=== PATIENT | female | born 2000 | race Caucasian/White ===

== ENCOUNTER 2019-04-29 13:42 | Emergency (ER) | payer OTHER ==
[2019-04-29] MEDS ORDERED: Sodium Chloride 0.9% 1000 ML 1,000 ML IV STA (14:13)
[2019-04-29] MEDS ORDERED: Zofran 4 MG/2 ML VIAL IV ONE (14:13)
[2019-04-29] MEDS ORDERED: MORPHINE SULFATE 4 MG INJ IV ONE (14:13)
[2019-04-29] MEDS ORDERED: MORPHINE SULFATE 4 MG INJ ONE (14:17)
[2019-04-29] MEDS ORDERED: Sodium Chloride 0.9% 1000 ML 1,000 ML ONE (14:17)
[2019-04-29] MEDS ORDERED: Zofran 4 MG/2 ML VIAL ONE (14:17)
--- NOTE | 2019-04-29 14:17 | ERPHSYRPT ---
- History of Present Illness Time Seen by Provider: 04/29/19 14:00 Historian: patient Patient Subjective Stated Complaint: Pt stated that she woke up on Wednesday morning in severe pain to the RLQ and later began vomiting, it continued on into and went to [facility] where a CT was done and it showed an inflamed appendix but they stated that it wasn't severe enough for surgery and to leave and return if the pain got worse, pt has been vomiting since and the pain is rated 9/10 at this time Triage Nursing Assessment: Pt brought into the ER by her friends, pt rates pain as 9/10 in RLQ, pain is to severe to palpate as she said that it does hurt when touched, denies trouble with urination, pt's last bowel movement was on , pt has decreased appetite and hasn't eaten much since Wednesday, last food intake was last night at 1900, pt has not had any fluids today, vitals wnl Physician History: 19 years old female presented in the ER with chief complaint of 4-day history of right lower quadrant pain sudden onset associated with multiple episodes of nonprojectile, nonbilious vomiting with no hematemesis. Patient described this as a dull aching to sharp moderate intensity pain all the time and at times it gets stabbing with no radiation, aggravated with palpation and movements. She was seen at [facility] with CT showing enteritis and terminal ileum area, was reviewed by Dr. Ramírez, who did not think patient has acute appendicitis. Patient continues to have pain and is worse since morning. Denies any urinary symptoms. No diarrhea. Denies any fever or chills. She has been taking amoxicillin for otitis media. Timing/Duration: day(s) (4), gradual onset, worse Activities at Onset: rest Quality: cramping, sharpness Abdominal Pain Onset Location: RLQ Pain Radiation: no radiation Severity of Pain-Max: moderate Severity of Pain-Current: moderate Modifying Factors: Improves With: movement, palpation Associated Symptoms: nausea, vomiting Previous symptoms: no prior history Allergies/Adverse Reactions: melon Allergy (Verified 04/29/19 14:04) nut - unspecified Allergy (Verified 04/29/19 14:04) - Review of Systems Constitutional: No Symptoms Eyes: No Symptoms Ears, Nose, & Throat: No Symptoms Respiratory: No Symptoms Cardiac: No Symptoms Abdominal/Gastrointestinal: Abdominal Pain, Nausea, Vomiting Genitourinary Symptoms: No Symptoms Musculoskeletal: No Symptoms Skin: No Symptoms Neurological: No Symptoms Psychological: No Symptoms Endocrine: No Symptoms Hematologic/Lymphatic: No Symptoms Immunological/Allergic: No Symptoms - Past Medical History Pertinent Past Medical History: Yes Other Medical History: fibermyalgia - Past Surgical History Past Surgical History: No - Social History Smoking Status: Never smoker Exposure to second hand smoke: No Drug Use: none Patient Lives Alone: No - Female History Hx Last Menstrual Period: 04/28/2019 Hx Now: No - Nursing Vital Signs Nursing Vital Signs: Initial Vital Signs Temperature 98.4 F 04/29/19 13:49 Pulse Rate 84 04/29/19 13:49 Blood Pressure 116/66 04/29/19 13:49 O2 Sat by Pulse Oximetry 96 04/29/19 13:49 Pain Scale Pain Intensity 8 - Physical Exam General Appearance: no apparent distress Eye Exam: eyes nml inspection Ears, Nose, Throat Exam: normal ENT inspection Neck Exam: normal inspection, non-tender, supple, full range of motion Respiratory Exam: normal breath sounds, lungs clear Cardiovascular Exam: regular rate/rhythm, normal heart sounds Gastrointestinal/Abdomen Exam: soft, tenderness, guarding, No distention Back Exam: normal inspection Extremity Exam: normal inspection, normal range of motion Neurologic Exam: alert, oriented x 3, cooperative Skin Exam: normal color SpO2 Interpretation: normal SpO2: 96 O2 Delivery: Room Air Ordered Tests: Active Orders 24 hr Category Date Time Status IV Insertion STAT Care 04/29/19 14:13 Active ABDOMEN AND PELVIS W/0 CONTRAS [CT] Stat Exams 04/29/19 14:25 Taken CBC W DIFF Stat Lab 04/29/19 14:21 Completed CMP Stat Lab 04/29/19 14:21 Completed LIPASE Stat Lab 04/29/19 14:21 Completed Manual Differential NC Stat Lab 04/29/19 14:21 Completed Medication Summary Discontinued Medications Generic Name Dose Route Start Last Admin Trade Name Freq PRN Reason Stop Dose Admin Diphenhydramine HCl Confirm 04/29/19 14:39 Benadryl 50 Mg/Ml Administered 04/29/19 14:40 Dose 50 mg .ROUTE .STK-MED ONE Sodium Chloride 1,000 mls @ 999 mls/hr 04/29/19 14:13 04/29/19 16:27 Sodium Chloride 0.9% 1000 Ml IV 04/29/19 15:13 Infused .Q1H1M STA Infusion Sodium Chloride Confirm 04/29/19 14:17 Sodium Chloride 0.9% 1000 Ml Administered 04/29/19 14:18 Dose 1,000 mls @ ud .ROUTE .STK-MED ONE Ketorolac Tromethamine Confirm 04/29/19 16:06 Toradol 30 Mg Injection Administered 04/29/19 16:07 Dose 30 mg .ROUTE .STK-MED ONE Ketorolac Tromethamine 30 mg 04/29/19 16:16 04/29/19 16:17 Toradol 30 Mg Injection IV 04/29/19 16:17 30 mg STAT ONE Administration Morphine Sulfate 4 mg 04/29/19 14:13 04/29/19 14:18 Morphine Sulfate 4 Mg Inj IV 04/29/19 14:14 4 mg STAT ONE Administration Morphine Sulfate Confirm 04/29/19 14:17 Morphine Sulfate 4 Mg Inj Administered 04/29/19 14:18 Dose 4 mg .ROUTE .STK-MED ONE Ondansetron HCl 4 mg 04/29/19 14:13 04/29/19 14:18 Zofran 4 Mg/2 Ml Vial IV 04/29/19 14:14 4 mg STAT ONE Administration Ondansetron HCl Confirm 04/29/19 14:17 Zofran 4 Mg/2 Ml Vial Administered 04/29/19 14:18 Dose 4 mg .ROUTE .STK-MED ONE Lab/Rad Data: Laboratory Result Diagrams 04/29/19 14:21 04/29/19 14:21 Laboratory Results 04/29/19 04/29/19 Range/Units 14:21 14:21 WBC 6.9 (4.0-10.5) K/mm3 RBC 4.69 (4.1-5.4) M/mm3 Hgb 13.3 (12.0-16.0) gm/dl Hct 40.5 (35-47) % MCV 86.4 (78-100) fl MCH 28.4 (26-32) pg MCHC 32.8 (32-36) g/dl RDW 13.0 (11.5-14.0) % Plt Count 249 (150-450) K/mm3 MPV 11.0 (7.5-11.0) fl Segmented Neutrophils 59 (36.0-66.0) % Lymphocytes (Manual) 32 (24-44) % Monocytes (Manual) 8 (0.0-12.0) % Eosinophils (Manual) 1 (0.00-3.0) % Platelet Estimate NORMAL (NORMAL) RBC Morphology NORMAL Sodium 140 (137-145) mmol/L Potassium 4.0 (3.5-5.1) mmol/L Chloride 108 H (98-107) mmol/L Carbon Dioxide 24 (22-30) mmol/L Anion Gap 12.5 (5-15) MEQ/L BUN 13 (7-17) mg/dL Creatinine 0.61 (0.52-1.04) mg/dL Estimated GFR > 60.0 ML/MIN Glucose 88 (74-106) mg/dL Calcium 9.6 (8.4-10.2) mg/dL Total Bilirubin 0.70 (0.2-1.3) mg/dL AST 25 (14-36) U/L ALT 13 (0-35) U/L Alkaline Phosphatase 94 (38-126) U/L Serum Total Protein 8.7 H (6.3-8.2) g/dL Albumin 4.7 (3.5-5.0) g/dL Lipase 69 (23-300) U/L - Progress Progress: improved, re-examined Progress Note: 04/29/19 16:46 19 years old is evaluated for right lower quadrant pain. Her previous CT showed enteritis. She did have tenderness and guarding and I have repeated CT with out contrast and it showed normal appendix. She does have positive chlamydia and her prescription is at the pharmacy. She does not have any vaginal discharge. She has a normal white count. I believe patient still have some element of infectious enteritis and I will treat her with Cipro and Flagyl. She is advised to take ibuprofen and Zofran as needed which she has at home. Do not think she needs any further work-up or evaluation and is stable for discharge with outpatient follow-up Counseled pt/family regarding: lab results, diagnosis, need for follow-up, rad results - Departure Departure Disposition: Home Clinical Impression: Enteritis, RLQ abdominal pain, Chlamydia Condition: Stable Critical Care Time: No Referrals: BECCA MCLAIN, [ACTIVE STAFF] - Follow Up with PCP/3 days Instructions: Acute Abdomen (Belly Pain), Adult (DC) Additional Instructions: Continue fluids. Take Tylenol/ibuprofen as needed for pain. Follow-up with primary care for reevaluation. Continue with antibiotics. Get prescription of azithromycin filled for your chlamydia infection. Return to ER for any worsening. Safe sex practices. Prescriptions: Ciprofloxacin [Cipro 500 MG] 500 mg PO BID #14 tablet Metronidazole 500 mg [Flagyl 500 MG] 500 mg PO TID #21 tablet
[2019-04-29 14:22] LABS: Hematocrit 40.5 % (35-47); Hemoglobin 13.3 gm/dl (12.0-16.0); Mean Cell Volume 86.4 fl (78-100); Mean Corpuscular Hemoglobin 28.4 pg (26-32); Mean Corpuscular Hgb Concent. 32.8 g/dl (32-36); Platelet Count 249 K/mm3 (150-450); Red Blood Count 4.69 M/mm3 (4.1-5.4); White Blood Count 6.9 K/mm3 (4.0-10.5)
[2019-04-29 14:32] LABS: ALBUMIN 4.7 g/dL (3.5-5.0); ALKALINE PHOSPHATASE 94 U/L (38-126); ANION GAP 12.5 MEQ/L (5-15); BLOOD UREA NITROGEN 13 mg/dL (7-17); CHLORIDE 108 mmol/L (98-107); Calcium 9.6 mg/dL (8.4-10.2); Carbon Dioxide 24 mmol/L (22-30); Creatinine 1 0.61 mg/dL (0.52-1.04); Glucose 88 mg/dL (74-106); LIPASE 69 U/L (23-300); SGOT/AST 25 U/L (14-36); SGPT/ALT 13 U/L (0-35); SODIUM 140 mmol/L (137-145); Total Protein 8.7 g/dL (6.3-8.2)
[2019-04-29] MEDS ORDERED: BENADRYL 50 MG/ML ONE (14:39)
[2019-04-29 15:06] LABS: Eosinophil 1 % (0.00-3.0); Lymphocytes 32 % (24-44); Monocyte 8 % (0.0-12.0); Neutrophils 59 % (36.0-66.0); Total Cells Counted 100
[2019-04-29 15:07] LABS: Platelet Estimate NORMAL (NORMAL)
[2019-04-29] MEDS ORDERED: TORAdol 30 mg Injection ONE (16:06)
[2019-04-29 16:14] VITALS: PULSE 75
[2019-04-29] MEDS ORDERED: TORAdol 30 mg Injection IV ONE (16:16)
[2019-04-29 17:04] VITALS: BP 116/60; O2SAT 97
--- NOTE | 2019-04-29 19:24 | XRAY ---
Indication: Abdominal pain, vomiting, and constipation. Multiple contiguous axial images obtained through the abdomen and pelvis without contrast as ordered. Comparison: None Lung bases are clear. Heart is not enlarged. Noncontrasted stomach and bowel loops appear nonobstructed. Normal appendix. There is moderate diffuse scattered colonic fecal debris throughout. No free fluid/air. 3.5 cm left ovary cyst. Tampon in situ. Remaining liver, gallbladder, pancreas, spleen, adrenal glands, kidneys, ureters, bladder, uterus, and aorta appear unremarkable for noncontrast exam. Osseous structures intact. Impression: 1. Diffuse fecal stasis without obstruction. 2. 3.5 cm left ovary cyst and tampon in situ. 3. Remaining CT abdomen/pelvis without contrast exam is negative. Comment: Preliminary interpretation was made by [facility]. No critical discrepancy.
== END 2019-04-29 17:00 | disposition home or self-care (01) ==
LOC: ED 13:42
DX: R10.9 Unspecified abdominal pain (principal); A56.2 Chlamydial infection of genitourinary tract, unspecified
CPT/HCPCS: 36000; 36415; 74176; 80053; 83690; 85025; 96360; 96374; 96375; 99284; J1200; J1885; J2270; J2405